=== PATIENT | female | born 2000 | race African-American/Black ===

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

== ENCOUNTER → 2021-02-03 03:39 | Outpatient (CLI) | payer BC, SELFPAY ==
[2021-02-03 19:13] LABS: SARS-CoV-2 RNA PCR Negative
== END ==
PROVIDERS: PCP Family Medicine; Visit Provider Family Medicine
DX: R68.89 Other general symptoms and signs (principal); Z20.822 Contact with and (suspected) exposure to COVID-19
CPT/HCPCS: C9803; U0003; U0005